=== PATIENT | female | born 1995 | race African-American/Black ===

== ENCOUNTER 2020-01-11 22:29 | Emergency (ER) | payer OTHER ==
[2020-01-11 23:41] LABS: #Basophils 0.1 thou/uL (0.0-0.2); #Lymphocytes 2.3 thou/uL (1.20-3.40); #Monocytes 0.4 thou/uL (0.11-0.59); #Neutrophils 6.4 thou/uL (1.40-6.50); %Basophils 0.8 % (0.0-1.0); %Eosinophils 0.3 % (0.0-10.0); %Monocytes 4.4 % (0.0-10.0); %Neutrophils 69.4 % (42.0-75.0); Hemoglobin 12.4 g/dL (12.0-16.0); Mean Corpuscular HGB CONC 33.4 g/dL (32.0-36.0); Mean Corpuscular Hemoglobin 29.3 pg (27.0-31.0); Mean Corpuscular Volume 87.6 fL (78.0-98.0); Mean Platelet Volume 7.4 fL (7.4-10.4); Platelet Count 321 thou/uL (130-400); RBC Distribution Width 13.6 % (11.5-14.5); Red Blood Cell (RBC) Count 4.25 mill/uL (4.20-5.40); White Blood Cell (WBC) Count 9.2 thou/uL (4.8-10.8)
[2020-01-11 23:57] LABS: Bacteria/HPF None Seen HPF (None Seen); Bilirubin Negative (Negative); Blood, Urine Negative (Negative); Clarity Clear (Clear); Glucose, Urine (Dipstick) Normal (Negative); Leukocyte 75 Leu/uL (Negative); Nitrite Negative (Negative); Protein, Urine (Dipstick) 10 mg/dL (Neg-Trace); RBC/HPF 0-3 HPF (0-3); Squamous Epithelial 0-3 HPF (0-3)
[2020-01-11 23:58] LABS: Pregnancy Test - Urine (BHCG) POSITIVE (Negative); Pregu Control Background? CLEAR/WHITE (CLR/WHITE); Pregu Control Bar Appear? YES (CONTROL BAR); Specific Gravity 1.025 (1.002-1.036)
--- NOTE | 2020-01-12 07:22 | ULT ---
FIRST TRIMESTER OBSTETRICAL ULTRASOUND: Date: 01/12/2020 INDICATION: History of positive beta HCG with sharp pelvic pain and no vaginal bleeding. FINDINGS: There is a single, live intrauterine gestation, with a crown-rump length of 1.27 cm, giving estimated gestational age of 7 weeks and 3 days. The mean sac diameter was 3.84 cm, giving an estimated gestat ional age of 9 weeks and 1 day. The average gestational age by ultrasound is 8 weeks and 2 days. Paige mated due date of 08/21/2020. Cardiac activity is noted at 163 bpm. There is a small subchorionic hem orrhage seen along the inferior aspect of the gestational sac occupying less than 25% of the circumfe rence. The right ovary measures 2.9 x 2.9 cm. The left ovary measures 2.7 x 3.4 cm. The uterus measur es 10.4 x 6.8 cm. No free fluid is evident. There is a small, 1.2 cm cyst within the right ovary. Nor mal flow is seen to both ovaries. IMPRESSION: 1. Single live intrauterine gestation. 2. Small subchorionic hemorrhage along the inferior aspect of the gestational sac occupying less chloé n 25% of the circumference. 3. Small right ovarian cyst. POS: [facility]
== END 2020-01-12 01:16 | disposition home or self-care (01) ==
LOC: ERS 22:29
DX: O20.8 Other hemorrhage in early pregnancy (principal); O26.891 Other specified pregnancy related conditions, first trimester; R10.30 Lower abdominal pain, unspecified; O21.9 Vomiting of pregnancy, unspecified; O99.341 Other mental disorders complicating pregnancy, first trimester; F41.9 Anxiety disorder, unspecified; F32.9 Major depressive disorder, single episode, unspecified; Z3A.01 Less than 8 weeks gestation of pregnancy
CPT/HCPCS: 36415; 76856; 81003; 81015; 81025; 84702; 85025; 86900; 86901; 93976

== ENCOUNTER 2020-01-27 21:44 | Emergency (ER) | payer OTHER ==
[2020-01-27] MEDS ORDERED: Ondansetron ODT 4 MG TAB ONE (22:03)
[2020-01-27 22:11] LABS: Bilirubin Negative (Negative); Blood, Urine 2+ (Negative); Clarity Extra Turbid (Clear); Glucose, Urine (Dipstick) Normal (Negative); Leukocyte 500 Leu/uL (Negative); Nitrite Negative (Negative); Protein, Urine (Dipstick) 200 mg/dL (Neg-Trace); RBC/HPF Greater than 50 HPF (0-3); Renal Epithelial 0-3 HPF (None Seen); WBC/HPF Greater than 50 HPF (0-3)
[2020-01-27 22:19] LABS: Bacteria/HPF Rare-Few HPF (None Seen)
== END 2020-01-27 22:46 | disposition home or self-care (01) ==
LOC: ERS 21:44
DX: O23.41 Unspecified infection of urinary tract in pregnancy, first trimester (principal); O99.341 Other mental disorders complicating pregnancy, first trimester; F41.9 Anxiety disorder, unspecified; F32.9 Major depressive disorder, single episode, unspecified; Z3A.09 9 weeks gestation of pregnancy
CPT/HCPCS: 81003; 81015; 87086; 99283; Q0162